=== PATIENT | male | born 1970 | race Caucasian/White ===

== ENCOUNTER → 2020-08-10 | Outpatient (CLI) | payer BC ==
--- NOTE | 2020-08-10 10:52 | Diagnostic Imaging Report ---
INDICATION: Left leg pain. EXAMINATION: Left leg venous Doppler study is performed in the routine fashion with color flow Doppler and waveform analysis. FINDINGS: The left common femoral vein and profunda femoris vein and SFV are patent and compressible. The popliteal vein and calf veins are patent and compressible. There are two solid areas of soft tissue irregularity which contain color flow. Consider MRI for further characterization of these soft tissue masses. IMPRESSION: No evidence of deep vein thrombosis in the major veins of left leg. Soft tissue masses are noted in the posterior calf which appears solid, consider MRI for further characterization if clinically warranted. Dictated by: Dictated on workstation # [id number]
== END ==
LOC: RAD 09:26
PROVIDERS: ATTEND Nurse Practitioner Family
DX: S86.092A Other specified injury of left Achilles tendon, initial encounter (principal); I10 Essential (primary) hypertension; F32.9 Major depressive disorder, single episode, unspecified; X58.XXXA Exposure to other specified factors, initial encounter